=== PATIENT | female | born 1970 | race Caucasian/White ===

== ENCOUNTER 2018-06-03 09:26 | Inpatient (IN) | payer OTHER ==
[~2018-06-03] VITALS: Ht 162.6 cm; Wt 76.8 kg
[2018-06-03 09:36] VITALS: Ht 162.6 cm; Wt 76.8 kg
[2018-06-03 10:40] LABS: microscopic required? NO
[2018-06-03 10:46] LABS: CALCIUM 8.5 mg/dL (8.5-10.1); CARBON DIOXIDE 28.7 mmol/L (21-32); CHLORIDE SERUM 96 mmol/L (98-107); CREATININE SERUM 0.8 mg/dL (0.6-1.0); GFR1 > 60 mL/min; GLUCOSE SERUM 132 mg/dL (74-106); POTASSIUM SERUM 3.9 mmol/L (3.5-5.1); SODIUM SERUM 131 mmol/L (136-145)
[2018-06-03 10:51] LABS: ALBUMIN 3.8 g/dL (3.4-5.0); ALKALINE PHOSPHATASE 90 U/L (46-116); ALT/SGPT 92 U/L (14-59); AMYLASE 16 U/L (25-115); AST/SGOT 46 U/L (15-37); BILIRUBIN TOTAL 1.2 mg/dL (0.20-1.00); LIPASE 67 IU/L (73-393)
[2018-06-03 10:54] LABS: PLATELET COUNT 428 x10^3mcL (130-400); RED CELL DISTRIBUTION WIDTH 16.3 % (11.5-14.5)
[2018-06-03 10:59] LABS: UA SPECIFIC GRAVITY <=1.005 (1.005-1.035); urine erythrocyte NEGATIVE (NEGATIVE)
[2018-06-03 11:19] LABS: BAND NEUTROPHIL 5 % (0-10); MONOCYTE 6 % (0-7); SEGMENTED NEUTROPHILS 84 % (37-75)
[2018-06-03 11:20] LABS: rbc morphology (normal/abnorm) NORMAL (NORMAL)
[2018-06-03 11:21] LABS: PLATELET MORPHOLOGY PLATELETS NORMAL
[2018-06-03 14:45] LABS: CHOLESTEROL/HDL RATIO 2.3
[2018-06-03 16:09] VITALS: BP 142/84
[2018-06-03 20:57] VITALS: BP 156/94
[2018-06-04 06:07] VITALS: BP 121/79
[2018-06-04 07:36] LABS: CARBON DIOXIDE 25.8 mmol/L (21-32); CHLORIDE SERUM 102 mmol/L (98-107); CREATININE SERUM 0.7 mg/dL (0.6-1.0); GFR1 > 60 mL/min; GLUCOSE SERUM 124 mg/dL (74-106); POTASSIUM SERUM 3.5 mmol/L (3.5-5.1); SODIUM SERUM 136 mmol/L (136-145)
[2018-06-04 08:00] VITALS: BP 138/90
[2018-06-04 08:00] LABS: PLATELET COUNT 336 x10^3mcL (130-400)
[2018-06-04 08:03] LABS: RED CELL DISTRIBUTION WIDTH 16.9 % (11.5-14.5)
[2018-06-04 09:09] LABS: BAND NEUTROPHIL 1 % (0-10); BASOPHIL 0 % (0-2); MONOCYTE 1 % (0-7); SEGMENTED NEUTROPHILS 92 % (37-75)
[2018-06-04 09:10] LABS: PLATELET MORPHOLOGY PLATELETS NORMAL; rbc morphology (normal/abnorm) ABNORMAL (NORMAL)
[2018-06-04] MEDS ORDERED: CLONIDINE HCL0.1 MG PO ×2 (15:39→15:40)
[2018-06-04 17:32] VITALS: BP 155/97
[2018-06-04 21:40] VITALS: BP 147/93
[2018-06-05 05:32] VITALS: BP 157/101
[2018-06-05 06:49] LABS: CALCIUM 8.6 mg/dL (8.5-10.1); CHLORIDE SERUM 103 mmol/L (98-107); CREATININE SERUM 0.7 mg/dL (0.6-1.0); GFR1 > 60 mL/min; GLUCOSE SERUM 94 mg/dL (74-106); POTASSIUM SERUM 3.1 mmol/L (3.5-5.1); SODIUM SERUM 135 mmol/L (136-145)
[2018-06-05 07:05] LABS: BASOPHIL % 0.1 % (0-2); PLATELET COUNT 325 x10^3mcL (130-400)
[2018-06-05 07:16] LABS: RED CELL DISTRIBUTION WIDTH 16.8 % (11.5-14.5)
[2018-06-05 08:00] VITALS: BP 152/101
[2018-06-05 10:01] VITALS: BP 140/97
[2018-06-05] MEDS ORDERED: LEVAQUIN500 M1 PO (12:49)
[2018-06-05] MEDS ORDERED: FLA500 PO (12:49)
[2018-06-05 14:16] VITALS: BP 140/97
== END 2018-06-05 15:03 | disposition home or self-care (01) | DRG 710 ==
LOC: ED 09:26 → MU 12:43
PROVIDERS: Family Medicine; Internal Medicine; Specialist; Surgery
PROC: 0DTJ4ZZ Resection of Appendix, Percutaneous Endoscopic Approach (ICD-10-PCS; principal; 2018-06-03 13:30)
DX: A41.9 Sepsis, unspecified organism (principal); K35.2 Acute appendicitis with generalized peritonitis; I10 Essential (primary) hypertension; E87.1 Hypo-osmolality and hyponatremia; E86.0 Dehydration; D47.3 Essential (hemorrhagic) thrombocythemia; F17.210 Nicotine dependence, cigarettes, uncomplicated; Z68.26 Body mass index [BMI] 26.0-26.9, adult
CPT/HCPCS: 83880; 94150; 97110-GP; 97535-GP; C9113; J0330; J0690; J1170; J1885; J2250; J2270; J2405; J2543; J2704; J2710; J3010; J3490; J7030; J7042; J7120; Q9967